=== PATIENT | female | born 2000 | race Caucasian/White ===

== ENCOUNTER → 2021-02-16 10:34 | Outpatient (CLI) | payer OTHER, MEDICAID, SELFPAY ==
[2021-02-19 00:44] LABS: AFP, Serum 25.8 ng/mL (.); Estriol, Free 0.84 ng/mL (.); Inhibin A, Dimeric 70.27 pg/mL (.); Inhibin A, MoM 0.45 (.); Maternal Ethnicity Caucasian (.); Maternal Weight 153 lbs (.); Number of Fetuses No (.); OSBR Risk 1 IN 10000 (.); Results Report (.); Test Results *Screen Negative* (.); hCG, MoM 0.58 (.); hCG, Serum 15478 mIU/mL (.)
== END ==
PROVIDERS: Referring Provider Family Medicine; Visit Provider Family Medicine
DX: Z34.92 Encounter for supervision of normal pregnancy, unspecified, second trimester (principal); Z3A.18 18 weeks gestation of pregnancy
CPT/HCPCS: 36415; 82105; 82677; 84702; 86336

== ENCOUNTER → 2021-03-02 13:49 | Outpatient (CLI) | payer OTHER, MEDICAID, SELFPAY ==
--- NOTE | 2021-03-02 13:50 | DI.US.S_ITS ---
PROCEDURE: US OB >= 14 WEEKS FETUS INDICATIONS: ANATOMY OUTSIDE/PRIOR DATING DATA: Last menstrual period (LMP): 09/12/2020. LMP-based estimated date of delivery (LIANNA): A 1321 . First dating scan (date and location): 11/27/2020 . Estimated date of delivery (LIANNA) from first dating scan: 07/16/2021 . TECHNIQUE: Real-time scanning was performed of the fetus, with image documentation and biometric measurements. Endovaginal scanning: No COMPARISON: [facility], OB < 14 WEEKS + OB TRANSVAG, 11/27/2020, 18:32. FINDINGS: General: A single living intrauterine gestation is present. Presentation: Vertex. Placenta: Placental position is posterior , without previa. Amniotic fluid index: 13.7 cm, normal range is 5-24 cm. heart rate: 143 beats per minute. Maternal cervical canal: 3.0 cm long. Normal lower limit is 2.5 cm. biometrics: Biparietal diameter: 20 weeks 2 days Head circumference: 20 weeks Abdominal circumference: 19 weeks 4 days Femur length: 19 weeks 6 days Estimated gestational age from initial scan: 20 weeks 4 days Composite gestational age from present scan: 20 weeks 0 days Estimated weight and percentile: 309 g, 10 percentile Measurement variability for biometric dating: +/- 7 days from 14 weeks to 15 weeks 6 days gestation, +/- 10 days from 16 weeks to 21 weeks 6 days gestation, +/- 2 weeks from 22 weeks to 27 weeks 6 days gestation, +/- 3 weeks for 28 weeks gestation or later. weight reference: 4500 g or EFW >90/95% is considered macrosomia or large for gestational age. EFW <10% is small for gestational age. EFW 5% or less is considered intra-uterine growth restriction. Anatomic survey: Neuro: Ventricles are non-dilated at less than 10 mm. Cisterna magna is normal at 3-11 mm. Cerebellum is normal in size and morphology. Nuchal skin fold: Normal at less than 6 mm between 14-21 weeks gestational age. Face: Nose and lips are normal and the facial profile is not well seen. Spine: No evidence for spina bifida. Heart: 4-chambered heart is present, with normal ventricular outflow tracts. Diaphragm: Diaphragm is intact. Stomach: Left-sided stomach is present. Kidneys: No hydronephrosis. Normal is less than 5 mm in 2nd trimester, less than 7 mm in 3rd trimester. Cord: 3-vessel cord has orthotopic insertion. Bladder: Normal in size. Extremities: All 4 extremities identified. IMPRESSION: Single living IUP redemonstrated and interval growth is lower limits of normal. Facial profile not well seen; otherwise normal anatomy. Follow-up recommended. Dictated by: Jose Sanches [facility] Interpreted: Jeff Henriquez MD on 03/02/2021 at 17:00 Approved by: Jeff Henriquez M.D. on 03/02/2021 at 17:11
== END ==
PROVIDERS: Referring Provider Family Medicine; Visit Provider Family Medicine
DX: Z34.92 Encounter for supervision of normal pregnancy, unspecified, second trimester (principal); Z3A.20 20 weeks gestation of pregnancy
CPT/HCPCS: 76811

== ENCOUNTER → 2021-03-16 13:01 | Outpatient (CLI) | payer OTHER, MEDICAID, SELFPAY ==
--- NOTE | 2021-03-16 13:02 | DI.US.S_ITS ---
PROCEDURE: US OB FOLLOW UP INDICATIONS: FOLLOW UP PROFILE OUTSIDE/PRIOR DATING DATA: Last menstrual period (LMP): 09/12/20. LMP-based estimated date of delivery (LIANNA): 06/19/21 First dating scan (date and location): 11/27/20 Estimated date of delivery (LIANNA) from first dating scan: 07/16/21 TECHNIQUE: Real-time scanning was performed of the fetus, with image documentation. Endovaginal scanning: Not needed COMPARISON: [facility] OB >= 14 WEEKS FETUS, 03/02/2021, 14:09. [facility] OB < 14 WEEKS + OB TRANSVAG, 11/27/2020, 18:32. FINDINGS: A single living intrauterine gestation is present. Presentation: Vertex Placenta: Placental position is posterior , without previa. Amniotic fluid index: 16.9 cm, normal range is 5-24 cm. heart rate: 144 beats per minute. Maternal cervical canal: 4.6 cm long. Normal lower limit is 2.5 cm. Estimated gestational age from initial scan: 22 weeks 4 days . Note: The facial profile was not well seen on the prior anatomic survey due to positioning. The current study allowed excellent visualization of the facial profile, which appears normal. IMPRESSION: Completion of the anatomic survey. facial profile is well visualized and normal. Dictated by: Sergio Fiscehr M.D. on 03/16/2021 at 13:51 Approved by: Sergio Fischer M.D. on 03/16/2021 at 13:54
== END ==
PROVIDERS: Referring Provider Family Medicine; Visit Provider Family Medicine
DX: Z36.2 Encounter for other antenatal screening follow-up (principal); Z3A.22 22 weeks gestation of pregnancy
CPT/HCPCS: 76816

== ENCOUNTER → 2021-03-20 10:32 | Outpatient (CLI) | payer OTHER, MEDICAID, SELFPAY ==
[2021-03-20 10:51] LABS: Add Manual Diff / Slide Review NO; Basophils Absolute Auto 0 /uL (0-100); Basophils Percent Auto 0.4 % (0-2); Eosinophils Absolute Auto 100 /uL (0-450); Eosinophils Percent Auto 0.9 % (2-4); Hematocrit 36.8 % (36-46); Lymphocytes Absolute Auto 2000 /uL (1100-4500); Lymphocytes Percent Auto 29.5 % (25-40); Mean Corpuscular HGB Conc 32.7 % (30-36); Mean Corpuscular Hemoglobin 32.3 PG (26-34); Mean Corpuscular Volume 98.9 fL (80-100); Monocytes Absolute Auto 400 /uL (0-900); Monocytes Percent Auto 6.4 % (3-14); Neutrophils Absolute Auto 4200 /uL (1500-7000); Neutrophils Percent Auto 62.8 % (50-75); Platelet Count 180 X10^3/uL (150-400); Red Blood Cell Count 3.72 X10^6/uL (4.0-5.2); Red Cell Distribution Width 12.6 % (11.6-14.8); White Blood Cell Count 6.8 X10^3/uL (4.5-11.0)
[2021-03-20 12:05] LABS: Appearance Urine UA CLOUDY; Bilirubin Urine UA NEGATIVE (NEGATIVE); Color Urine UA YELLOW; Glucose Urine UA NEGATIVE (Negative); Ketones Urine UA NEGATIVE (NEGATIVE); Leukocyte Esterase Urine UA NEGATIVE (NEGATIVE); Nitrite Urine UA NEGATIVE (Negative); Occult Blood Urine UA NEGATIVE (Negative); Protein Urine UA NEGATIVE (Negative); Urobilinogen Urine UA 0.2 E.U./dL (0.2)
[2021-03-20 12:07] LABS: pH Urine UA 7.5 (4.5-8.0)
[2021-03-20 12:17] LABS: HIV 1 & 2 Ab/Ag 4th Gen Combo NEGATIVE (NEGATIVE); Hep C Virus Ab w/Reflex Quant NEGATIVE s/c (NEGATIVE); Hepatitis B Surface Antigen NEGATIVE s/c (NEGATIVE)
[2021-03-21 05:48] LABS: RPR Screen Non Reactive (Non Reactive)
[2021-03-21 07:18] LABS: Varicella IgG Antibody 1218 index (Immune >165)
== END ==
PROVIDERS: PCP Family Medicine; Referring Provider Family Medicine; Visit Provider Family Medicine
DX: Z34.01 Encounter for supervision of normal first pregnancy, first trimester (principal)
CPT/HCPCS: 36415; 80055; 81003; 86787; 86803; 86850; 86900; 86901; 87086; 87389

== ENCOUNTER → 2021-04-29 13:49 | Outpatient (CLI) | payer OTHER, MEDICAID, SELFPAY ==
[2021-04-29 15:59] LABS: Add Manual Diff / Slide Review NO; Basophils Absolute Auto 0 /uL (0-100); Basophils Percent Auto 0.4 % (0-2); Eosinophils Absolute Auto 100 /uL (0-450); Eosinophils Percent Auto 1.1 % (2-4); Hematocrit 37.3 % (36-46); Hemoglobin 12.6 g/dL (12.0-16.0); Lymphocytes Absolute Auto 2400 /uL (1100-4500); Lymphocytes Percent Auto 25.9 % (25-40); Mean Corpuscular HGB Conc 33.7 % (30-36); Mean Corpuscular Hemoglobin 33.2 PG (26-34); Mean Corpuscular Volume 98.6 fL (80-100); Monocytes Absolute Auto 400 /uL (0-900); Monocytes Percent Auto 4.2 % (3-14); Neutrophils Absolute Auto 6200 /uL (1500-7000); Neutrophils Percent Auto 68.4 % (50-75); Platelet Count 160 X10^3/uL (150-400); Red Blood Cell Count 3.79 X10^6/uL (4.0-5.2); Red Cell Distribution Width 13.2 % (11.6-14.8); White Blood Cell Count 9.1 X10^3/uL (4.5-11.0)
[2021-04-29 17:07] LABS: GTT (PREG) 1 Hour PP 50gm Dose 100 mg/dL (76-139)
== END ==
PROVIDERS: PCP Family Medicine; Referring Provider Family Medicine; Visit Provider Family Medicine
DX: Z34.90 Encounter for supervision of normal pregnancy, unspecified, unspecified trimester (principal)
CPT/HCPCS: 36415; 82950; 85025

== ENCOUNTER 2021-05-21 11:23 | Outpatient (CLI) | payer OTHER, MEDICAID, SELFPAY ==
--- NOTE | 2021-05-21 12:54 | PM.OBTRLD ---
Visit Information Visit Information Date of evaluation: 05/21/21 Primary OB Provider: Tiny Vilchis On-call OB Provider: Joan Bailon Reason for Evaluation: Yes other Comments/Additional reasons for admission: This is a 21-year-old at 31 weeks and 5 days gestation. She called the clinic this morning due to cramping and pelvic pressure and was advised to go to the center. 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 When she arrived at the center she was feeling much better. Denies leaking or bleeding and reports good movement. Vital Signs Vital Signs: Temperature 36.7? blood pressure 107/58 heart rate 100 PFSH Medical History ADHD (~2004) Anxiety (~2008) Gallstones without obstruction of gallbladder (~2016) Surgical History Hx of appendectomy (~11/2019) [place] teeth extracted (~2016) Family History Mother No problems noted. 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[place].) current occupational exposures/hazards: Yes (Tries to avoid the cleaning chemicals; using gloves/mask & good ventilation) seatbelt use: always do you feel safe at home: Yes Smoking Status: Never smoker second hand exposure: No alcohol intake: never (very very rarely, socially.) substance use type: marijuana (Not since conception; used to smoke before bed to help sleep.) during the past year weight has: remained stable well-balanced diet: daily or most days daily servings fruits/ve-4 caffeine: Yes (Quit w/ .) eating out: rarely or never Type(s) of exercise: normal ROM and activity (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 Very active daily.) frequency: daily duration: > 90 minutes/day Evaluation Evaluation Baseline heart rate: 125 Variability: Moderate (11-25) monitor accelerations: Present Monitor Decelerations: Absent Contraction Frequency (minutes): 0 Category of Tracing: Reactive Diagnosis, Plan/Disposition Final Diagnosis (1) 31 weeks gestation of : Status: Acute Plan/Disposition Plan: Reactive NST. Patient reassured there were no contractions on the monitor. She was feeling much better upon arrival in the center as well. Follow-up with Dr. Vilchis scheduled. OB Disposition: home
== END 2021-05-21 13:05 ==
LOC: LABOR 11:31 → OB 05-27 15:02
PROVIDERS: PCP Family Medicine; Referring Provider Family Medicine; Visit Provider Family Medicine
DX: O47.03 False labor before 37 completed weeks of gestation, third trimester (principal); Z3A.31 31 weeks gestation of pregnancy
CPT/HCPCS: 59025; G0378; G0379

== ENCOUNTER → 2021-06-19 14:19 | Outpatient (CLI) | payer OTHER, MEDICAID, SELFPAY ==
[2021-06-20 13:08] LABS: Strep Grp B PCR NEG for Grp B Strep
== END ==
PROVIDERS: PCP Family Medicine; Visit Provider Family Medicine
DX: Z34.90 Encounter for supervision of normal pregnancy, unspecified, unspecified trimester (principal); Z3A.35 35 weeks gestation of pregnancy
CPT/HCPCS: 87653

== ENCOUNTER 2021-06-25 10:34 | Inpatient (IN) | payer OTHER, MEDICAID, SELFPAY ==
--- NOTE | 2021-06-25 11:32 | P.HPOB_ITS ---
OB HPI Date/Time Date of admission: 06/25/21 Date Patient Seen: 06/25/21 Time Patient Seen: 12:45 History of Present Condition Chief complaint: Leaking of fluid : 1 Para: 0 Estimated Date of Delivery: 07/18/21 Estimated Gestational Age (weeks): 36w5d Narrative: Isamar Hurtado is a 21 year old at 36 weeks and 5 days. Shortly after waking this morning she noticed that she was leaking but she thought perhaps she had pedal little bit. She had an OB appointment this morning and when she got out of the car there was a large gush of fluid which soaks her pants. She presented for her appointment and was sent to the center. She has had some mild contractions but nothing consistent and reports good movement. Denies recent illnesses, headaches or swelling. has been uncomplicated with care with Dr. Vilchis. She tried couple different medications during the for anxiety but did not continue with any of them. History of Present care: good care, initiated at week # (9), number of visits (9) and pounds weight gain (52) Dating criteria: LMP confirmed by 1st trimester US Ultrasounds: normal mid trimester US Obstetrical complications: none Medical complications: none Preadmission Labs Blood type: O (+) positive -: Antibody screen: negative, GBS status: negative, HBsAG: negative, HIV: negative and RPR/VDLR: negative HCT: 39.6 HCAB: negative Quad screen: Normal Urine: Negative Evaluation Evaluation Baseline heart rate: 130 Variability: Moderate (11-25) monitor accelerations: Present Monitor Decelerations: Absent Category of Tracing: Reactive Status: Category l Cervical dilation (cm): 1.5 Cervical effacement (%): 50 station: -2 Non-invasive Membranes Rupture Test: positive [facility] Medical History ADHD (~2004) Anxiety (~2008) Gallstones without obstruction of gallbladder (~2016) Surgical History Hx of appendectomy (~11/2019) [place] teeth extracted (~2016) Family History Mother No problems noted. 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[employer].) current occupational exposures/hazards: Yes (Tries to avoid the cleaning chemicals; using gloves/mask & good ventilation) seatbelt use: always do you feel safe at home: Yes Smoking Status: Never smoker second hand exposure: No alcohol intake: never (very very rarely, socially.) substance use type: marijuana (Not since conception; used to smoke before bed to help sleep.) during the past year weight has: remained stable well-balanced diet: daily or most days daily servings fruits/ve-4 caffeine: Yes (Quit w/ .) eating out: rarely or never Type(s) of exercise: normal ROM and activity (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.) frequency: daily duration: > 90 minutes/day Meds Home Medications and Allergies Home Medications Medication Instructions Recorded Confirmed Type prenat.vits,jaquan,hql-iwba-menvl 1 tab PO DAILY 12/12/20 02/02/21 History hydroxyzine HCl 25 mg tablet 25 mg PO TID PRN #90 tab 02/02/21 02/02/21 Rx ondansetron 4 mg disintegrating 4 mg PO Q6H #20 tab 02/02/21 02/02/21 Rx tablet sertraline 25 mg tablet 12.5 mg PO DAILY #15 tab 05/05/21 05/05/21 Rx Allergies Allergy/AdvReac Type Severity Reaction Status Date / Time amoxicillin Allergy Intermediate Age 7: Verified 12/15/20 12:00 Legs swelling, numbness, loss of muscle control isaac AdvReac Intermediate Hives Verified 12/15/20 12:00 Exam Vital Signs (past 8 hours): Temperature 36.3? blood pressure 130/83 heart rate 81 Const General: healthy appearing and comfortable [facility] Head: normal to inspection Ears: hearing grossly normal bilaterally Nose: external nose normal Face and sinus: normal facial exam Mouth: oral mucosae normal Eyes General: appearance normal, both eyes and all related structures Neck Neck: normal visual inspection Resp Effort & Inspection: normal respiratory effort Auscultation: clear to auscultation bilaterally Cardio Rate: regular rate Rhythm: regular rhythm Heart Sounds: no murmurs GI Other: Gravid External Female Exam: normal external appearance Manual OB Exam: dilated (1.5), effaced 50% and station -2 Uterus Location (Fundal Height): 37 Presentation: vertex Estimated Weight (lbs): 6 Back/Spine/Pelvis Back: normal to inspection Skin General: no rashes or lesions noted Extrem General: normal to inspection and no pedal edema Objective Labs Result Diagrams: 06/25/21 11:50 Assessment and Plan Assessment and Plan Assessment and Plan narrative: 21-year-old at 36 weeks and 5 days gestation with premature rupture membranes at 8:00 a.m. today with clear fluid. EFM category 1. GBS negative. Recommended Pitocin as she is not yet in labor. Will let her eat then start pitocin per protocol. Epidural when desired.
[2021-06-25 12:04] LABS: Add Manual Diff / Slide Review NO; Basophils Absolute Auto 100 /uL (0-100); Basophils Percent Auto 0.8 % (0-2); Eosinophils Absolute Auto 100 /uL (0-450); Eosinophils Percent Auto 1.1 % (2-4); Hematocrit 39.6 % (36-46); Hemoglobin 12.8 g/dL (12.0-16.0); Lymphocytes Absolute Auto 2900 /uL (1100-4500); Lymphocytes Percent Auto 25.5 % (25-40); Mean Corpuscular HGB Conc 32.4 % (30-36); Mean Corpuscular Hemoglobin 31.7 PG (26-34); Monocytes Absolute Auto 500 /uL (0-900); Monocytes Percent Auto 4.6 % (3-14); Neutrophils Absolute Auto 7700 /uL (1500-7000); Platelet Count 210 X10^3/uL (150-400); Red Blood Cell Count 4.04 X10^6/uL (4.0-5.2); Red Cell Distribution Width 13.5 % (11.6-14.8); White Blood Cell Count 11.4 X10^3/uL (4.5-11.0)
[2021-06-25 13:17] LABS: COVID19 - ADMIT (NP swab/PCR) Negative (Negative)
[2021-06-25] MEDS: LACTATED RINGERS 1,000 ML 100 ML IV ×2 (13:31→16:34)
[2021-06-25] MEDS: OXYTOCIN PREMIX 30 UNIT/500 ML PLAST..BAG IV (13:31)
[2021-06-25] MEDS: CALCIUM CARBONATE 500 MG TAB 1000 MG PO ×2 (16:34→18:53)
--- NOTE | 2021-06-25 16:47 | PM.OBPNLAB ---
Date/Time Date Patient Seen: 06/25/21 Time Patient Seen: 16:35 Pain Control Pain control: epidural Comments: Feeling much better with epidural. Pelvic Exam Dilation (cm): 4 Effacement (%): 90 station: -1 Amniotic membrane status: Ruptured Contractions Monitor mode: External Pitocin rate (mU/min): 3 Contraction frequency (min): 2 Status status: Category l Heart Rate Baseline: 120 Monitor Accelerations: Present Monitor Decelerations: Absent Monitor Variability: Moderate Assessment and Plan Plan: continuous present management Comments: 21-year-old at 36 weeks and 5 days with PPROM, now entering active labor on minimal Pitocin. Comfortable with epidural. Suspect OP presentation. Encouraged frequent position change with RN. Limit cervical exams due to rupture of membranes.
--- NOTE | 2021-06-25 20:27 | PM.OBPRVD ---
Events: Labor < 37 wks Labor & Delivery Delivery date: 06/25/21 Delivery augmentation: pitocin Delivery monitor: external FHT Route of delivery: L&D Laceration Description: None Estimated blood loss (mL): 100 Anesthesia Type: Epidural Narrative: 21-year-old at 36 weeks and 5 days who presented with PPROM. STAGE I: Labor Spontaneous rupture membranes occurred at approximately 8:00 a.m. with clear fluid. Patient was admitted and started on Pitocin for augmentation. She went on to receive an epidural with excellent pain control. She was complete at 19:29. heart tones were category 1 throughout stage I. STAGE II: Delivery Patient pushed for 15 minutes. Spontaneous vaginal delivery occurred at 8:05 p.m.. Infant was vertex and LIZANDRO. A after delivery was immediately placed on mother's abdomen and noted to have the cord wrapped around his right hand. This was reduced. Cord was clamped and cut after 1 minute delay. Apgars were 9 and 9 at 1 and 5 minutes respectively. No resuscitation of the required beyond drying and stimulating. STAGE III: Placenta/Cord Placenta delivered at 8:08 a.m. after active management and appeared intact with a three-vessel cord. Pitocin bolus given after delivery of placenta. Uterine fundus firm below umbilicus. There were no vaginal, perineal or cervical lacerations. EBL: 100 mL. Needle and sponge counts were correct. The vagina was inspected and no items were left in situ. Patient was doing well with Cort[place], her and boyfriend at bedside. Baby 1: gender: Male Presentation: vertex Position: Left Occiput Anterior Placenta delivery description: Spontaneous score (1 min): 9 score (5 min): 9 Plan for aftercare: Routine care
[2021-06-26] MEDS: IBUPROFEN 600 MG TABLET PO ×3 (00:56→23:44)
[2021-06-26] MEDS: CALCIUM CARBONATE 500 MG TAB 1000 MG PO (02:22)
--- NOTE | 2021-06-26 08:16 | P.PNOB_ITS ---
Subjective - OB Subjective Patient comments: no complaints, pain well controlled and tolerating diet baby status: doing well Date Patient Seen: 06/26/21 Time Patient Seen: 08:00 Interval history: Patient has no complaints. Vaginal bleeding is similar to heavy menstrual cycle. Pain well controlled. is improving. Infant had some low blood sugars overnight requiring glucose gel but is doing w ell this morning. She has voided and ambulated without difficulty. There was an incident this morning with her boyfriend. He awoke with difficulty breathing and an asthma attack. He was quite aggressive toward staff and left to seek care in the emergency department however ultimately went home and got inhaler then came back. No known drug use. 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 Exam Vital Signs (past 8 hours): Temperature 97.9? blood pressure 129/80 heart rate 71 respirations 17 Narrative Exam Narrative: General: Awake and alert, no acute distress. HEENT: NCAT, EOMI, moist oral mucosa CV: Regular rate and rhythm, no murmurs, rubs or gallops Lungs: CTAB, no wheezes, rales, or rhonchi Abdomen: Soft, nontender; bowel tones active; uterus firm 1 cm below umbilicus Extremities: Warm, no edema, 2+ pedal pulses bilaterally Objective Labs Result Diagrams: 06/25/21 11:50 Labs: Laboratory Results - last 24 hr 06/25/21 06/25/21 06/25/21 11:30 11:50 11:50 WBC 11.4 H RBC 4.04 Hgb 12.8 Hct 39.6 MCV 98.0 MCH 31.7 MCHC 32.4 RDW 13.5 Plt Count 210 Neut % (Auto) 68.0 Lymph % (Auto) 25.5 Nicholas % (Auto) 4.6 Eos % (Auto) 1.1 L Baso % (Auto) 0.8 Neut # (Auto) 7700 H Lymph # (Auto) 2900 Nicholas # (Auto) 500 Eos # (Auto) 100 Baso # (Auto) 100 SARS-CoV-2 (PCR) Negative Blood Type O Positive Antibody Screen Negative Assessment & Plan Assessment and Plan (1) Spontaneous vaginal delivery: Status: Acute (2) 36 weeks gestation of : Status: Acute Plan day: 1 plan OB: routine care Comments: Doing well after uncomplicated spontaneous vaginal delivery. Will need to speak with patient worn private about her relationship with her boyfriend. She states that she feels safe with him though there remained some concerns after his behavior this morning. Anticipate discharge home tomorrow given prematurity and . Time Spent With Patient Time: Total time spent is greater than 50% in coordination of care (as documented) at patient's floor/unit and/or counseling patient: Time with patient: less than 15 minutes
[2021-06-26] MEDS: LANOLIN OINT 7 GM 1 APPLIC TOP (08:24)
[2021-06-26] MEDS: PRENATAL VIT,CALC/IRON/FOLIC 1 TABLET 1 TAB PO (08:24)
[2021-06-26] MEDS: DOCUSATE 100 MG CAPSULE PO (08:24)
[2021-06-26] MEDS: ACETAMINOPHEN 325 MG TABLET 650 MG PO ×2 (08:25→23:44)
--- NOTE | 2021-06-27 08:56 | P.DS_ITS ---
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 Patient presented with spontaneous rupture membranes. She was augmented with Pitocin and went on to deliver a vigorous male . There were no lacerations. patient did well. She was ambulating, voiding, stooling without difficulty. Vaginal bleeding was tapering and pain controlled with minimal ibuprofen. Breast-feeding was going well. had some difficulty with low blood sugars initially but stabilized. There was some concern regarding her social and home situation due to an outburst in her boyfriend during an asthma attack. She denied concerns at home or fear for her safety. Boyfriend was appropriate the remainder of their hospital stay. Patient in felt safe to discharge home. Advised patient to call for fevers, severe pain or bleeding through more than a pad an hour. She will follow-up in clinic with Dr. Vilchis for 6 week visit. Peripartum Data Delivery Method: Natural Vaginal Laceration Description: None complications: none [place] 1: Gender: Male Disposition of : home Discharge Diagnosis (1) Spontaneous vaginal delivery: Status: Acute (2) 36 weeks gestation of : Status: Acute Status at Discharge Cognitive/behavioral status at discharge: at baseline, oriented Functional status at discharge: independent ambulation Overall status at discharge: patient is progressing back to baseline Time Spent with Patient Time attestation: Total time spent providing and/or coordinating discharge services: Time spent: Less than 30 minutes Objective Labs Result Diagrams: 06/25/21 11:50 Exam Vital Signs (past 8 hours): Temperature 97.9? blood pressure 97/65 heart rate 74 respirations 15 General: Awake and alert, no acute distress. HEENT: NCAT, EOMI, moist oral mucosa CV: Regular rate and rhythm, no murmurs, rubs or gallops Lungs: CTAB, no wheezes, rales, or rhonchi Abdomen: Soft, nontender; bowel tones active; uterus firm 1 cm below umbilicus Extremities: Warm, no edema Discharge Plan Discharge Plan Patient Disposition: Home Discharge orders & Medications Prescriptions: New ibuprofen 600 mg Tablet 600 mg PO Q6HR PRN (Reason: Pain, Mild (1-3)) Qty: 30 RF: 0 Discontinued hydroxyzine HCl 25 mg tablet 25 mg PO TID PRN (Reason: anxiety) Qty: 90 RF: 2 ondansetron 4 mg tablet,disintegrating 4 mg PO Q6H Qty: 20 RF: 2 sertraline 25 mg tablet 12.5 mg PO DAILY Qty: 15 RF: 1 prenat.vits,jaquan,oiq-pwlb-bxjlj Tablet 1 tab PO DAILY RF: 0 Follow up/Referrals: Tiny Vilchis MD [Primary Care Provider] - Skin/Wound/Dressing Care Report to your healthcare provider any signs of infection, such as:: chills, fever, increased pain and unusual drainage Visit Report/Discharge Packet Visit Report Forms: Patient Portal/API, Stroke Signs & Symptoms Discharge Data Primary Care Provider: Tiny Vilchis
[2021-06-27] MEDS: PRENATAL VIT,CALC/IRON/FOLIC 1 TABLET 1 TAB PO (09:46)
[2021-06-27] MEDS: DOCUSATE 100 MG CAPSULE PO (09:46)
[2021-06-27] MEDS: IBUPROFEN 600 MG TABLET PO (11:44)
[2021-06-27 12:28] VITALS: BP 147/82; PULSE 82; RESP 16; TEMP 36.8
== END 2021-06-27 15:02 | disposition home or self-care (01) | DRG 807 ==
PROVIDERS: Admitting Provider Specialist; PCP Family Medicine; Referring Provider Specialist; Visit Provider Family Medicine
DX: O42.013 Preterm premature rupture of membranes, onset of labor within 24 hours of rupture, third trimester (principal); Z37.0 Single live birth; Z3A.36 36 weeks gestation of pregnancy; O69.81X0 Labor and delivery complicated by cord around neck, without compression, not applicable or unspecified; Z20.822 Contact with and (suspected) exposure to COVID-19
CPT/HCPCS: 01967; 36415; 59025; 59050; 59400; 84112; 85025; 86850; 86900; 86901; 87635; C9803; G0379; J2590

== ENCOUNTER → 2021-10-21 11:21 | Outpatient (CLI) | payer OTHER, MEDICAID, SELFPAY ==
[2021-10-21 13:00] LABS: COVID19 -Nasal RAPID Negative (Negative)
== END ==
PROVIDERS: PCP Family Medicine; Visit Provider Physician Assistant
DX: Z20.822 Contact with and (suspected) exposure to COVID-19 (principal)
CPT/HCPCS: 87635

== ENCOUNTER 2021-10-23 07:19 | Day surgery (SDC) | payer OTHER, MEDICAID, SELFPAY ==
[2021-10-21 12:16] VITALS: BMI 31.2
[2021-10-23] VITALS (7 sets, daily range): BP systolic 105–150; BP diastolic 69–89; PULSE 64–90; RESP 14–26; TEMP 36.2–36.7; O2SAT 97–100; BMI 31.2
[2021-10-23] MEDS: LACTATED RINGERS 1,000 ML 42 ML IV (07:50)
--- NOTE | 2021-10-23 09:04 | PM.PREOP ---
Pre-operative Note COVID-19 COVID-19 status: Negative Result date/Date tested (Pos, Neg/Pending): 10/21/21 Interval Note History & Physical reviewed/Exam performed by Physician: Yes Changes to H&P: No
--- NOTE | 2021-10-23 09:05 | P.OP_ITS ---
Operative Date/Time/Diagnoses Date of procedure: 10/23/21 Time of procedure: 09:05 Pre-op diagnosis: Left fourth toe corn, hammertoes four and five. Post-op diagnosis: same Procedure & Clinicians Procedure: Left fifth toe derotational arthroplasty. Left fourth toe proximal interphalangeal joint arthrodesis Same procedure as scheduled: Yes Indications: 21-year-old female with ongoing painful corn and hammertoes to the left 4th and 5th toes. Conservative measures have failed to alleviate her pain and she wished to have surgical intervention at this time. We spoke of the risks potential complications as well as expected outcomes, consent was signed, no contraindication to the procedures at this time. Surgeon: Deidra Mack Click Yes if Unassisted: Yes Anesthesia Type: General Operative Notes Closure Type: primary Specimen(s): none sent Prosthetic devices, grafts, tissues, transplants, or devices: 0.045 k-wire Estimated Blood Loss (mL): 20 Blood products transfused: none Tourniquet time (min): 38 Procedure in detail: The patient was brought to the operating room and placed on the operating table in the supine position. Tourniquet was placed about the left ankle. Well padded, appropriately aligned. After induction of general anesthesia the left foot and ankle were prepped and draped in the usual aseptic manner. The tourniquet was inflated. After a check of anesthesia, two converging incisions were made over the fifth proximal interphalangeal joint. The incisions were deepened through subcutaneous tissues being careful to identify and retract all vital neurovascular structures. All bleeders were cauterized and ligated as necessary. Once the joints were mobilized, a saw was used to resect head of proximal phalanx and the edge of the intermediate phalanx was also gently rasped and remodeled using a rongeur and rasped to allow for a more contoured area for the bone. The area was irrigated with copious amounts of normal sterile saline and the extensor was repaired using Vicryl. The subcutaneous tissues were closed in a derotational fashion to allow for less curling of the toe and this was closed also with Vicryl. Attention was directed to 4th toe where an incision was made over the dorsal 4th proximal and distal interphalangeal joints. The incision was deepened through subcutaneous tissues being careful to identify and retract all vital neural and vascular structures. All bleeders were cauterized and ligated as necessary. A saw was used to resect the head of the proximal phalanx and the base of the intermediate phalanx. The same was performed to the distal interphalangeal rose int. The area was irrigated with normal saline. A K-wire was placed at the base of the intermediate phalanx and gently driven out distally, the tip of the 4th toe. This was then retrograded back into the proximal phalanx and splinted across the at metatarsal phalangeal joint into the metatarsal itself. This was verified on C-arm and showed good seating of the former proximal interphalangeal joint and good alignment. The area was irrigated with normal saline. Excess wire at the tip was and capped after the exiting wire was carefully bent up. The extensor was repaired using Vicryl and the tourniquet was deflated, prompt hyperemic response was seen to the foot. Subcutaneous closure was also performed using Vicryl and skin closure using nylon. Skin was closed on both incisions with 4-0 nylon. A sterile lightly compressive dressing was placed on the foot as well as a little antibiotic ointment on the tip where the wire was exiting the 4th toe. A stockinette was placed as well as her postoperative shoe and she was transferred to the PACU. Post-operative Condition: stable Disposition: PACU Plan for aftercare: Following a period of postoperative monitoring, the patient be discharged home on written and oral postoperative instructions including keeping the dressing dry and intact, no weight to the left foot (she is using a roll-about scooter) until k-wire removal in about four weeks, icing and elevating the foot when seated home. DVT prevention techniques have been reviewed. X-rays w/weight to the foot approximately week four.
[2021-10-23] MEDS: CLINDAMYCIN 600 MG/50 ML PIGGYBACK 50 MG IV (09:28)
--- NOTE | 2021-10-23 09:44 | SUR.OPER ---
Supine on padded OR bed, head on pillow, arms secured on padded arm boards at <90 degrees abduction, legs uncrossed, safety belt at thigh, tape over blanket over lower legs.
[2021-10-23] MEDS: BUPIVACAINE 0.5% (PF) VIAL 30 ML INJ (10:08)
[2021-10-23] MEDS: NEOMYCIN/POLYMYXIN/BACITRA UD OINT 1 EACH TOP (10:41)
[2021-10-23] MEDS: ONDANSETRON 4 MG/2 ML INJ IV (11:10)
== END 2021-10-23 11:55 | disposition home or self-care (01) ==
PROVIDERS: PCP Family Medicine; Referring Provider Podiatrist; Visit Provider Podiatrist
PROC: (CPT 26535; principal; 2021-10-23 09:15)
PROC: (CPT 28285; 2021-10-23 09:15)
DX: M20.42 Other hammer toe(s) (acquired), left foot (principal); L84 Corns and callosities; F41.9 Anxiety disorder, unspecified
CPT/HCPCS: 28285; 81025; J2250; J2405; J3010

== ENCOUNTER → 2021-11-04 16:25 | Outpatient (CLI) | payer OTHER, MEDICAID, SELFPAY ==
[2021-11-04 17:35] LABS: COVID19 -Nasal RAPID Negative (Negative)
== END ==
PROVIDERS: PCP Family Medicine; Visit Provider Family Medicine
DX: R09.81 Nasal congestion (principal); R05.9 Cough, unspecified
CPT/HCPCS: 87635